=== PATIENT | male | born 1980 | race Caucasian/White ===

== ENCOUNTER 2017-10-15 08:00 | Day surgery (SDC) | payer OTHER ==
[~2017-10-15] VITALS: Ht 175.3 cm; Wt 105.2 kg
[2017-10-15 08:34] VITALS: BP 129/77; Ht 175.3 cm; Wt 105.2 kg
[2017-10-15] MEDS ORDERED: NORCO 7.5/325 T1 TA1 PO (10:23)
[2017-10-15] MEDS ORDERED: CYCLOBENZAPRINE10 MG PO (10:24)
== END 2017-10-15 13:00 | disposition home or self-care (01) ==
LOC: D.OPS 08:00 → D.PAN 09:45 → D.OPS 10:00 → D.PAN 10:00 → D.OPS 13:00
DX: K43.9 Ventral hernia without obstruction or gangrene (principal); Z01.812 Encounter for preprocedural laboratory examination